=== PATIENT | female | born 2005 | race Hispanic/Latino ===

== ENCOUNTER 2023-11-20 23:45 | Emergency (ER) | payer OTHER ==
[2023-11-21 00:22] LABS: #Monocytes 0.6 10x3/uL (0.0-1.1); #Neutrophils 7.6 10x3/uL (1.5-8.4); %Basophils 0.1 % (0.0-2.0); %Neutrophils 85.9 % (40.0-75.0); Hemoglobin 13.8 g/dL (12.0-15.5); Mean Corpuscular HGB CONC 35.4 g/dL (32.0-36.0); Mean Corpuscular Hemoglobin 32.9 pg (27.0-33.0); Mean Corpuscular Volume 93.1 fl (81.6-98.3); Mean Platelet Volume 11.8 fl (7.4-10.4); Platelet Count 212 10x3/uL (150-450); RBC Distribution Width 12.2 % (11.5-14.5); Red Blood Cell (RBC) Count 4.19 10x6/uL (3.90-5.03); White Blood Cell (WBC) Count 8.8 10x3/uL (3.5-10.5)
[2023-11-21 00:24] LABS: Bilirubin Neg (Negative); Blood, Urine 10 (Negative); Clarity Clear (Clear); Glucose, Urine (Dipstick) Normal (Negative); Ketone, Urine 150 mg/dL (Negative); Leukocyte 100 (Negative); Nitrite Negative (Negative); Protein, Urine (Dipstick) 30 mg/dl (Neg-Trace); Specific Gravity, Urine 1.025 (1.005-1.030)
[2023-11-21 00:36] LABS: ALT (SGPT) 30 U/L (8-55); AST (SGOT) 31 U/L (5-34); Albumin 4.1 g/dL (3.5-5.0); Alkaline Phosphatase 43 U/L (40-100); Anion Gap 15 mmol/L (10-20); BUN (Urea Nitrogen) 11 mg/dL (7.0-18.7); Bilirubin, Total 0.5 mg/dL (0.2-1.2); Calc. Creatinine Clearance 0 mL/min (70-130); Calcium 8.8 mg/dL (7.8-10.44); Carbon Dioxide 19 mmol/L (22-29); Chloride 102 mmol/L (98-107); Estimated GFR 129; Globulin 3.7 g/dL (2.4-3.5); Glucose 92 mg/dL (70-105); Lipase 19 U/L (8-78); Potassium 3.6 mmol/L (3.5-5.1); Protein, Total 7.8 g/dL (6.0-8.3); Sodium 132 mmol/L (136-145)
[2023-11-21] MEDS ORDERED: Ondansetron PF 4 MG/2 ML Vial ONE (00:36)
[2023-11-21 00:49] LABS: CAUTI Indications for Culture Pelvic or flank pain; RBC/HPF 0-3 HPF (0-3); Squamous Epithelial 0-3 HPF (0-3); Transitional Epithelial 0-3 HPF (None Seen)
[2023-11-21 00:50] LABS: Bacteria/HPF 1+ HPF (None Seen)
[2023-11-21 00:51] LABS: Urine Culture Reflex No No
== END 2023-11-21 01:12 | disposition home or self-care (01) ==
LOC: CSHERS 23:45
DX: O23.12 Infections of bladder in pregnancy, second trimester (principal); N30.00 Acute cystitis without hematuria; Z3A.15 15 weeks gestation of pregnancy
CPT/HCPCS: 76705; 80053; 81001; 83690; 85025; 96361; 96374; J2405

== ENCOUNTER 2024-04-08 22:45 | Day surgery (SDC) | payer OTHER, MEDICAID ==
[2024-04-08 23:04] VITALS: BMI 27.6
[2024-04-09] MEDS ORDERED: hydrALAZINE 20 MG/ML VIAL SLOW IVP PRN (00:35)
== END 2024-04-09 00:26 | disposition home or self-care (01) ==
LOC: CSHLD/OP 22:45
PROVIDERS: ATTEND Family Medicine
DX: O47.1 False labor at or after 37 completed weeks of gestation (principal); Z3A.37 37 weeks gestation of pregnancy; Z79.899 Other long term (current) drug therapy
CPT/HCPCS: 99283

== ENCOUNTER 2024-04-15 22:30 | Day surgery (SDC) | payer OTHER, MEDICAID ==
[2024-04-15] MEDS ORDERED: hydrALAZINE 20 MG/ML VIAL SLOW IVP PRN (23:01)
[2024-04-15 23:08] VITALS: BMI 28.1
[2024-04-16] MEDS ORDERED: Acetaminophen 500 MG TAB PO SCH (00:45)
== END 2024-04-16 01:15 | disposition home or self-care (01) ==
LOC: CSHLD/OP 22:30
PROVIDERS: ATTEND Family Medicine
DX: O47.1 False labor at or after 37 completed weeks of gestation (principal); Z3A.38 38 weeks gestation of pregnancy; Z79.899 Other long term (current) drug therapy

== ENCOUNTER 2024-04-16 10:05 | Inpatient (IN) | payer OTHER ==
[~2024-04-16 10:05] MED LIST: Bupivacaine 0.25% HCL 30 ML VIAL ONE
[2024-04-16] MEDS ORDERED: Ibuprofen 800 MG TAB PO PRN (10:55)
[2024-04-16] MEDS ORDERED: fentaNYL 50 mcg/mL 1 mL Vial SLOW IVP PRN (10:55)
[2024-04-16] MEDS ORDERED: Misoprostol 200 MCG TAB PR PRN (10:55)
[2024-04-16] MEDS ORDERED: Carboprost 250 MCG/ML AMP IM PRN (10:55)
[2024-04-16] MEDS ORDERED: Tranexamic Acid 1,000 MG/10 ML VIAL IVP PRN (10:55)
[2024-04-16] MEDS ORDERED: Ondansetron PF 4 MG/2 ML Vial IVP PRN ×3 (10:55→21:36)
[2024-04-16] MEDS ORDERED: Lidocaine 1% (PF) 30 ML VIAL SC PRN (10:55)
[2024-04-16] MEDS ORDERED: Diphenoxylate HCl/Atropine Tablet PO PRN (10:55)
[2024-04-16] MEDS ORDERED: HYDROcodone/Acetaminophen 5/325 mg Tablet PO PRN (10:55)
[2024-04-16] MEDS ORDERED: Acetaminophen 500 MG TAB PO PRN (10:55)
[2024-04-16] MEDS ORDERED: Promethazine HCl 25 MG/ML VIAL IM PRN ×2 (10:55→12:57)
[2024-04-16] MEDS ORDERED: hydrALAZINE 20 MG/ML VIAL SLOW IVP PRN ×2 (10:55→21:36)
[2024-04-16] MEDS ORDERED: Methylergonovine 0.2 MG/ML VIAL IM PRN (10:55)
[2024-04-16] MEDS: Lactated Ringer's 1,000 ML IV SCH (10:56)
[2024-04-16 10:58] VITALS: BMI 28.1
[2024-04-16] MEDS ORDERED: Oxytocin 30 units/NS 500 ML 500 ML IV SCH ×2 (11:00)
[2024-04-16 11:22] LABS: Hematocrit 37.2 % (34.9-44.5); Hemoglobin 13.2 g/dL (12.0-15.5); Mean Corpuscular HGB CONC 35.5 g/dL (32.0-36.0); Mean Corpuscular Hemoglobin 31.7 pg (27.0-33.0); Mean Corpuscular Volume 89.4 fL (81.6-98.3); Platelet Count 199 10x3/uL (150-450); RBC Distribution Width 12.8 % (11.5-14.5); Red Blood Cell (RBC) Count 4.16 10x6/uL (3.90-5.03); White Blood Cell (WBC) Count 11.3 10x3/uL (3.5-10.5)
[2024-04-16] MEDS: fentaNYL/Ropivacaine Epidural 100 ML ONE (11:43)
[2024-04-16 12:12] LABS: HBsAg Index 0.17 S/CO (0-0.99); Hep B Surf Ag - L&D Non-Reactive S/CO (NonReactive)
[2024-04-16 12:13] LABS: Syphilis Antibody Nonreactive (Nonreactive); Syphilis Antibody Index 0.05 S/CO (<1.00 Non-Reactive)
[2024-04-16] MEDS ORDERED: Lactated Ringer's 500 ML IV PRN (12:57)
[2024-04-16] MEDS ORDERED: diphenhydrAMINE 50 MG/ML VIAL IVP PRN (12:57)
[2024-04-16] MEDS ORDERED: Naloxone HCl 0.4 mg/ml Vial IVP PRN ×2 (12:57)
[2024-04-16] MEDS ORDERED: ePHEDrine Sulfate 50 MG/10 ML VIAL SLOW IVP PRN (12:57)
[2024-04-16] MEDS ORDERED: Acetaminophen 325 MG TAB PO PRN (12:57)
[2024-04-16] MEDS ORDERED: Moisturizing Cream (Eucerin) 113 GM JAR TOP PRN (12:57)
[2024-04-16] MEDS: Oxytocin 30 units/NS 500 ML 500 ML IV SCH (12:58)
[2024-04-16] MEDS ORDERED: fentaNYL 2 mcg/Ropivacaine 0.2% Epidural 100 ML CADD EPIDURAL SCH (13:00)
[2024-04-16] MEDS ORDERED: Communication Order-Pharmacy FS SCH (13:00)
[2024-04-16] MEDS ORDERED: Bisacodyl 10 MG SUPP PR PRN (21:36)
[2024-04-16] MEDS ORDERED: Milk Of Magnesia 30 ML UDCUP PO PRN (21:36)
[2024-04-16] MEDS ORDERED: diphenhydrAMINE 25 MG CAP PO PRN (21:36)
[2024-04-16] MEDS: Docusate 100 MG CAP PO SCH (22:16)
[2024-04-16] MEDS: Ibuprofen 800 MG TAB PO SCH (22:16)
[2024-04-16] MEDS: Benzocaine-Menthol 82.5 ML CAN TOP PRN (22:17)
[2024-04-16] MEDS: HYDROcodone/Acetaminophen 5/325 mg Tablet PO PRN (23:11)
[2024-04-17] MEDS: Boostrix 0.5 ML (Tdap) VIAL (>/=7 yrs of age) IM ONE (07:25)
[2024-04-17] MEDS: Ferrous Sulfate 325 MG TAB PO SCH (07:25)
[2024-04-17] MEDS: Docusate 100 MG CAP PO SCH (08:18)
[2024-04-18 07:56] VITALS: BP 108/66; TEMP 97.8
== END 2024-04-18 16:15 | disposition home or self-care (01) | DRG 807 ==
LOC: CSHLD 10:05 → CSHPP 20:48
PROVIDERS: ADMIT Family Medicine; ATTEND Family Medicine
PROC: 10E0XZZ Delivery of Products of Conception, External Approach (ICD-10-PCS; principal; 2024-04-16)
PROC: 0UQMXZZ Repair Vulva, External Approach (ICD-10-PCS; 2024-04-16)
PROC: 10H07YZ Insertion of Other Device into Products of Conception, Via Natural or Artificial Opening (ICD-10-PCS; 2024-04-16)
PROC: 3E033XZ Introduction of Vasopressor into Peripheral Vein, Percutaneous Approach (ICD-10-PCS; 2024-04-16)
DX: O70.0 First degree perineal laceration during delivery (principal); Z37.0 Single live birth; O76 Abnormality in fetal heart rate and rhythm complicating labor and delivery; Z3A.38 38 weeks gestation of pregnancy
CPT/HCPCS: 36415; 85027; 86780; 86850; 86900; 86901; 87340; J0665; J2590; J7120